=== PATIENT | male | born 1960 | race Caucasian/White ===

== ENCOUNTER 2017-01-29 10:58 | Emergency (ER) | payer SELFPAY ==
[~2017-01-29] VITALS: Ht 181.6 cm; Wt 143.4 kg
[2017-01-29 11:00] VITALS: Ht 181.6 cm; Wt 143.4 kg
--- OUTSIDE RECORDS SUMMARY | 2017-01-29 11:03 | XMS REPORT | Continuity of Care Document ---
Author Author [facility] Organization [facility] Address Unknown Phone Unavailable Allergies Active Description Code Type Severity Reaction Onset Reported/Identified Relationship to Patient Clinical Status Yes lisinopril NKMA N/A cough 02/24/2014 Medications Problems Procedures Results Encounters ACCT No. Visit Date/Time Discharge Status Pt. Type Provider Facility Loc./Unit Complaint [id number] 11/02/2014 10:33:00 2014 23:59:00 DIS Outpatient Chelle [facility] New FM pain in back of legs [id number] 11/02/2014 10:57:00 Document Registration
[2017-01-29] MEDS ORDERED: MAGN400C PO (11:27)
[2017-01-29] MEDS ORDERED: NAPR220T PO (11:27)
[2017-01-29] MEDS ORDERED: MULT-933 PO (11:27)
[2017-01-29] MEDS ORDERED: UBID100C10 PO (11:27)
[2017-01-29] MEDS ORDERED: NIAC500T22 PO (11:27)
[2017-01-29] MEDS ORDERED: INOS500T PO (11:27)
[2017-01-29] MEDS ORDERED: METOPROLOL 5mg/5ml INJECTION IV ONE (11:30)
--- NOTE | 2017-01-29 11:30 | NUR ---
IVL IV LOCK STARTED ON SECOND ATTEMPT. BLOOD DRAWN FOR LAB.
--- OUTSIDE RECORDS SUMMARY | 2017-01-29 11:30 | XMS REPORT | Continuity of Care Document ---
Author Author [facility] Organization [facility] Address Unknown Phone Unavailable Allergies Active Description Code Type Severity Reaction Onset Reported/Identified Relationship to Patient Clinical Status Yes lisinopril NKMA N/A cough 02/24/2014 Medications Problems Procedures Results Encounters ACCT No. Visit Date/Time Discharge Status Pt. Type Provider Facility Loc./Unit Complaint [id number] 11/02/2014 10:33:00 2014 23:59:00 DIS Outpatient Chelle Hernandez [facility] New FM pain in back of legs [id number] 11/02/2014 10:57:00 Document Registration
--- NOTE | 2017-01-29 11:35 | NUR ---
LOPRESSOR LOPRESSOR 5 MG GIVEN IV.
--- NOTE | 2017-01-29 11:50 | NUR ---
XRAY PT. REFUSES XRAY DUE TO COST.
[2017-01-29 11:51] LABS: BASOPHILS % (AUTO) 0.4 % (0-2); EOSINOPHILS # (AUTO) 0.1 T/MM3 (0-0.5); EOSINOPHILS % (AUTO) 1.9 % (0-4); HCT - HEMATOCRIT 48.4 % (41-53); HGB - HEMOGLOBIN 16.2 GM/DL (13.5-17.5); IMMATURE GRANULOCYTE # (AUTO) 0.03 T/MM3 (0.00-0.03); IMMATURE GRANULOCYTE % (AUTO) 0.4 % (0.0-0.5); LYMPHOCYTES # (AUTO) 2.2 T/MM3 (1-4.8); LYMPHOCYTES % (AUTO) 29.8 % (23-45); MEAN CORPUSCULAR HGB 29.6 UUG (26-34); MEAN CORPUSCULAR HGB CONC(MCHC 33.5 GM/DL (31-37); MEAN CORPUSCULAR VOLUME 88.3 UM3 (80-100); MEAN PLATELET VOLUME 10.5 UM3 (9.4-12.4); MONOCYTES # (AUTO) 0.6 T/MM3 (0-0.8); MONOCYTES % (AUTO) 7.5 % (0-9.0); NEUTROPHILS #(AUTO)-ABSOLUTE 4.4 T/MM3 (1.8-7.7); RED BLOOD COUNT 5.48 M/MM3 (4.50-5.90); WBC - WHITE BLOOD COUNT 7.4 T/MM3 (4.5-11.0)
[2017-01-29 11:56] LABS: ALBUMIN 4.1 G/DL (3.5-5.0); ALBUMIN/GLOBULIN RATIO 1.2 RATIO (1.1-2.2); ALKALINE PHOSPHATASE 60 U/L (38-126); ALT (SGPT) 57 U/L (21-72); ANION GAP 13 MEQ/L (5-15); AST (SGOT) 39 U/L (17-59); BUN/CREATININE RATIO 25 RATIO (6-26); CALCIUM 9.8 MG/DL (8.4-10.2); CHLORIDE 100 MEQ/L (98-107); CO2 - CARBON DIOXIDE 27 MEQ/L (22-30); CREATININE 0.8 MG/DL (0.8-1.5); GLOMERULAR FILTRATION RATE 100; GLUCOSE 185 MG/DL (75-110); POTASSIUM 4.4 MEQ/L (3.6-5); SODIUM 140 MEQ/L (134-144); TOTAL PROTEIN 7.5 G/DL (6.3-8.2)
--- NOTE | 2017-01-29 12:10 | NUR ---
CARDIZEM CARDIZEM GIVEN FOR CONTINUED ELEVATED BLOOD PRESSURE.
[2017-01-29] MEDS ORDERED: DILTIAZEM 25mg/5ml INJECTION IV ONE ×2 (12:15→12:45)
[2017-01-29] MEDS ORDERED: LABETALOL 100mg/20ml INJECTION IV ONE (13:15)
--- NOTE | 2017-01-29 14:03 | ERPDOC ---
Departure Disposition Decision Date: Jan 29, 2017 Disposition Decision Time: 14:09 Disposition: 01 DISCHARGED HOME, SELF-CARE Impression Impression Impression: Primary Impression: Hypertension Hypertension type: essential hypertension Qualified Codes: I10 - Essential ( primary) hypertension Severity: Moderate Condition: Improved Seen By: Physician only Referrals: EMILIA ARRINGTON APRN (Family) 1 Day Patient Instructions: Hypertension (ED) Problems/Meds/Labs Reviewed?: Yes Medications reviewed and manag: Yes Follow up care ordered?: Yes Mental Status: Alert, Oriented Scripts Metoprolol Tartrate (Metoprolol Tartrate) 50 Mg Tablet 50 MG PO BIDWM for hypertension for 10 Days, #20 TAB 0 Refills Take 1 tablet, by mouth, 2 times a day with meals. Prov: JUAN MAHAN DO 01/29/17 Diltiazem HCl (Diltiazem ER) 90 Mg Cap.er.12h 90 MG PO Q12HR for hypertesion for 10 Days, #20 CAP 0 Refills Prov: JUAN MAHAN DO 01/29/17 Spironolactone (Spironolactone) 25 Mg Tablet 25 MG PO BID for hypertension for 10 Days, #20 TAB 0 Refills Prov: JUAN MAHAN DO 01/29/17 HPI - General Medical General Chief Complaint: Hypertension Stated Complaint: HIGH BP Time Seen by Provider: 11:17 Source: patient (Patient presents to the ER with hypertension. Patient has not taken his Antihypertensives in almost 2 years, but has noticed his blood pressure was getting worse, prompting a visit to the ER) Exam Limitations: no limitations HPI - General Medical Occurred At: home Onset: Changing over time Duration: other Pain Scale: Now & Worst: 0/10 Severity: mild Associated Symptoms: denies symptoms Hx of Similar Symptoms: Yes Allergies: Coded Allergies: lisinopril (Verified Allergy, Mild, 01/29/17) Past History Past Medical History Metabolic: hypertension Surgical History Denies Surgeries Family History Family PMH: FOUND: other Social History Smoking Status: Unknown if ever smoked Does patient use chewing tobac: No Second Hand Exposure: No Substance Use Type: does not use Alcohol Intake: occasionally Last Drink: unknown Housing: house Service: No Occupational Hazard: No Advance Directives: Yes Full Code Record Review Pertinent history updated: Yes Review of Systems Constitutional Constitutional: DENIES: chills, fever Eyes Lids/Accessories: DENIES: erythema, swelling ENMT Ears: DENIES: erythema, pain Balance: DENIES: ataxia, vertigo Sinuses: DENIES: congestion, rhinorrhea Mouth/Throat: DENIES: sore throat Cardiovascular Cardiac: DENIES: chest pain, dyspnea on exertion, orthopnea Rhythm/Rate: DENIES: tachycardia Pulmonary Respiratory: DENIES: cough, dyspnea, sputum GI Upper Abdomen: DENIES: nausea, pain, vomiting Lower Abdomen: DENIES: constipation, diarrhea, pain General: DENIES: dysuria Musculoskeletal General: DENIES: cramps, pain, weakness Integumentary Skin: DENIES: color change, itching, rash Neurological General: DENIES: ataxia, change in strength, headache, numbness, poor coordination, seizures, syncope, vertigo, weakness Psychiatric Psychiatric: DENIES: anxiety, depression, nervousness Hematologic/Lymphatic Hematologic/Lymphatic: DENIES: anemia Allergic/Immunological Allergic/Immunoligical: sneezing All other Systems All Other Systems: Reviewed and Negative Physical Exam General General Nourishment: well nourished, well developed, appears stated age, adult , obese General Body Habitus: well groomed Vitals and Pain First Documented Vital Signs Date Time Temp Pulse Resp B/P Pulse Ox O2 Delivery O2 Flow Rate FiO2 01/29/17 11:00 97.8 105 22 225/125 96 Room Air Weight: Kilograms: 143.400 Height (feet): 5 Height (inches): 11.50 Triage Pain Scale: RN VS reviewed by Provider: Yes Eyes (brief) Eyes Brief: found: EOMI, PERRL ENMT (brief) ENMT Brief: FOUND: TM clear, TM good light reflex, mucosa moist, NOT FOUND: pharnyx erythema Neck (brief) Neck: FOUND: trachea midline, NOT FOUND: adenopathy, tenderness, tracheal deviation Respiratory (brief) Respiratory: FOUND: clear all gonzales, equal bilaterally Cardiovascular (brief) Cardiac: FOUND: regular rate, regular rhythm Capillary Refill: <2 sec Pulses: all distal extremities, equal, strong Abdomen (brief) Abdominal Brief: FOUND: bowel normo active x4, soft, NOT FOUND: distended, tender Lymphatic (brief) Lymphatic Brief: NOT FOUND: adenopathy Musculoskeletal (brief) Musculoskeletal Brief: NOT FOUND: spasm, tenderness Integumentary (brief) Integumentary Brief: FOUND: pink, warm Neurologic (brief) Neurological Brief: FOUND: CN w/o gross def to obs, gait w/o gross def to obs, motor-no gross deficits, sensory-no gross deficits, NOT FOUND: ataxia Psychiatric (brief) Psychiatric Brief: FOUND: alert, attentive, normal affect, oriented Differential Diagnoses Considering: Acute SC, Hypo/Hyperglycemia, Hypo/Hyperkalemia, Hypo/ Hypernatremia, Other Progress Results/Orders Orders Procedure Category Date Status Time Iv Lock (Ed Only) EDM 01/29/17 Transmitted 11:21 Cbc W/Auto LAB 01/29/17 Complete Diff-Reflex Manual Cmp - Comprehensive LAB 01/29/17 Complete Metabolic Ua, Dip Wreflex LAB 01/29/17 Logged [employer] Operator 11:21 EKG EKG 01/29/17 Taken Troponin I W LAB 01/29/17 Complete Hemolysis Index Metoprolol (Lopressor) PHA 01/29/17 Complete 11:30 Diltiazem (Cardizem*) PHA 01/29/17 Complete Iv Bolus (Cardizem 12:15 Diltiazem (Cardizem*) PHA 01/29/17 Complete Iv Bolus (Cardizem 12:45 Labetalol (Trandate) PHA 01/29/17 Complete 13:15 Lab Results Laboratory Tests Test 01/29/17 11:39 White Blood Count 7.4T/MM3 Red Blood Count 5.48M/MM3 Hemoglobin 16.2GM/DL Hematocrit 48.4% Mean Corpuscular Volume 88.3UM3 Mean Corpuscular Hemoglobin 29.6UUG Mean Corpuscular Hemoglobin Concent 33.5GM/DL RDW Standard Deviation 43.3FL Platelet Count 277T/MM3 Mean Platelet Volume 10.5UM3 Immature Granulocyte % (Auto) 0.4% Neutrophils (%) (Auto) 60.0% Lymphocytes (%) (Auto) 29.8% Monocytes (%) (Auto) 7.5% Eosinophils (%) (Auto) 1.9% Basophils (%) (Auto) 0.4% Absolute Immature Granulocyte (auto 0.03T/MM3 Absolute Neutrophils (auto) 4.4T/MM3 Absolute Lymphocytes (auto) 2.2T/MM3 Absolute Monocytes (auto) 0.6T/MM3 Absolute Eosinophils (auto) 0.1T/MM3 Absolute Basophils (auto) 0.0T/MM3 Turbidity < 20 Sodium Level 140MEQ/L Potassium Level 4.4MEQ/L Chloride Level 100MEQ/L Carbon Dioxide Level 27MEQ/L Anion Gap 13MEQ/L Blood Urea Nitrogen 20.0MG/DL Creatinine 0.8MG/DL Glomerular Filtration Rate Calc 100 BUN/Creatinine Ratio 25RATIO Glucose Level 185MG/DL Calculated Osmolality 277MOSM/KG Calcium Level 9.8MG/DL Total Bilirubin 1.00MG/DL Icterus Index < 2 Aspartate Amino Transf (AST/SGOT) 39U/L Alanine Aminotransferase (ALT/SGPT) 57U/L Alkaline Phosphatase 60U/L Troponin I 0.057ng/ml Total Protein 7.5G/DL Albumin 4.1G/DL Globulin 3.4G/DL Albumin/Globulin Ratio 1.2RATIO Chemistry Specimen Hemolysis < 15 Medications Current ED Medications Metoprolol Tartrate (Lopressor) 5 mg O ONCE IV Last administered on 01/29/17 11:35; Start 01/29/17 at 11:30; Stop 01/29/17 at 11:31; Status DC Diltiazem HCl (Cardizem) 10 mg O ONCE IV Last administered on 01/29/17 12:10; Start 01/29/17 at 12:15; Stop 01/29/17 at 12:16; Status DC Diltiazem HCl (Cardizem) 10 mg O ONCE IV Last administered on 01/29/17 12:47; Start 01/29/17 at 12:45; Stop 01/29/17 at 12:46; Status DC Labetalol HCl (Trandate) 20 mg O ONCE IV ; Start 01/29/17 at 13:15; Stop at 13:16; Status DC Progress Progress Patient is feeling better following medications and is wanting to go home. Patient refused X-Ray and Urinalysis Will start the patient on his Antihypertensives. Patient has appointment with his PCP tomorrow EKG EKG : Rate: 60-100 Rhythm: sinus [place]: normal QRS: normal Intervals: normal ST/T: non-specific changes Interpreted by: signing physician EKG ScImage/[place] EKG interpreted in ScImage/Pic: JUAN Mir DO Jan 29, 2017 14:03
[2017-01-29] MEDS ORDERED: DILT90CA PO (14:15)
[2017-01-29] MEDS ORDERED: METO50TA5 PO (14:15)
[2017-01-29] MEDS ORDERED: SPIR25TA4 PO (14:15)
[2017-01-29 14:30] VITALS: BP 162/75; PULSE 88; RESP 18; TEMP 97.8; O2SAT 92
== END 2017-01-29 14:30 | disposition home or self-care (01) ==
LOC: ED 10:58
DX: I10 Essential (primary) hypertension (principal)
CPT/HCPCS: 80053; 84484; 85025; 93005